=== PATIENT | male | born 1980 | race Caucasian/White ===

== ENCOUNTER 2020-12-14 10:56 | Outpatient (REF) | payer BC, SELFPAY ==
[2020-12-14 21:33] LABS: HCT 45.1 % (40.0-50.0); MCH 29.6 pg (27.0-33.0); MCHC 33.3 % (32.0-36.0); MPV 10.1 fL (8.0-11.0); Platelet Count 286 10^3/uL (130-400); RBC 5.07 10^6/uL (4.36-5.78); RDW 13.4 % (11.8-14.1); WBC 8.33 10^3/uL (4.4-10.8)
[2020-12-14 22:01] LABS: Hemoglobin A1C 5.6 % (<5.7)
[2020-12-14 22:02] LABS: ALT 41 U/L (16-63); AST 19 U/L (15-37); Albumin 4.2 g/dL (3.4-5.0); Alkaline Phosphatase 102 U/L (46-116); Anion Gap 8.5 mmol/L (3-11); BUN 19 mg/dL (7-18); Bilirubin, Total 0.5 mg/dL (0.2-1.0); CO2 28.5 mmol/L (21.0-32.0); CREATININE 0.8 mg/dL (0.70-1.30); Calcium 9.2 mg/dL (8.5-10.1); Calculated LDL 177 mg/dL (<100); Chloride 104 mmol/L (98-107); Cholesterol 246 mg/dL (<200); Glucose 97 mg/dL (74-106); HDL Cholesterol 54 mg/dL (40-60); Potassium 4.4 mmol/L (3.5-5.1); Sodium 141 mmol/L (136-145); TSH (W/Ref FT4) 1.02 uIU/mL (0.36-3.74); Total Protein 7.7 g/dL (6.4-8.2); Triglyceride 76 mg/dL (<150)
== END 2020-12-14 10:57 | disposition home or self-care (01) ==
LOC: NCHCN 10:56
PROVIDERS: Visit Provider Family Medicine
DX: Z13.220 Encounter for screening for lipoid disorders (principal); R63.4 Abnormal weight loss; Z86.59 Personal history of other mental and behavioral disorders
CPT/HCPCS: 80053; 80061; 85027; 83036; 84443

== ENCOUNTER 2022-08-15 17:40 | Outpatient (REF) | payer BC, SELFPAY ==
[2022-08-16 14:12] LABS: Chlamydia Result Negative (Negative); GC Result Negative (Negative)
== END 2022-08-15 17:41 | disposition home or self-care (01) ==
LOC: NCHCN 17:40
PROVIDERS: Visit Provider Family Medicine
DX: R39.89 Other symptoms and signs involving the genitourinary system (principal); Z11.3 Encounter for screening for infections with a predominantly sexual mode of transmission
CPT/HCPCS: 87491; 87591

== ENCOUNTER 2023-11-05 14:16 | Outpatient (REF) | payer BC, SELFPAY ==
[2023-11-05 15:18] LABS: Calculated LDL 121 mg/dL (<100); Cholesterol 196 mg/dL (<200); HDL Cholesterol 68 mg/dL (40-60); Triglyceride 38 mg/dL (<150)
[2023-11-05 15:24] LABS: Hemoglobin A1C 5.7 % (<5.7)
== END 2023-11-05 14:17 | disposition home or self-care (01) ==
LOC: NCHCN 14:16
PROVIDERS: PCP Family Medicine; Visit Provider Family Medicine
DX: Z13.220 Encounter for screening for lipoid disorders (principal); Z13.1 Encounter for screening for diabetes mellitus
CPT/HCPCS: 80061; 83036